=== PATIENT | female | born 1945 | race Hispanic/Latino ===

== ENCOUNTER 2018-11-04 08:39 | Emergency (ER) | payer MEDICARE, OTHER ==
[2018-11-04 08:39] VITALS: BMI 47.5
[2018-11-04 09:00] VITALS: RESP 18
--- NOTE | 2018-11-04 09:07 | ED PDOC ---
Arrival/HPI - General Chief Complaint: GI Problem Time Seen by Provider: 11/04/18 09:00 Historian: Patient - History of Present Illness Narrative History of Present Illness (Text): 11/04/18 09:04 73 year old female, whose past medical history includes hypercholestremia, hypertension, and diabetes, who presents to the Emergency department complaining of abdominal pain and vomiting x 1 day. Patient states she did an enema with no relief. Patient denies any fevers, chills, chest pain, shortness of breath, diarrhea, back pain, neck pain, urinary symptoms, headache, dizziness, or any other complaint. Time/Duration: 24 hours Symptom Onset: Gradual Symptom Course: Unchanged Activities at Onset: Light Context: Home Past Medical History - Provider Review Nursing Documentation Reviewed: Yes - Tetanus Immunization Tetanus Immunization: Unknown - Reproductive Menopause: Yes - Cardiac Hx Pacemaker: No - Neurological Hx Paralysis: No - Endocrine/Metabolic Hx Diabetes Mellitus Type 2: Yes - Hematological/Oncological Hx Blood Transfusions: No Hx Blood Transfusion Reaction: No - Musculoskeletal/Rheumatological Hx Musculoskeletal Disorders: Yes - Psychiatric Hx Emotional Abuse: No Hx Physical Abuse: No Hx Substance Use: No - Surgical History Hx Hysterectomy: Yes Hx Orthopedic Surgery: Yes (bilat knees) - Anesthesia Hx Anesthesia Reactions: No Hx Malignant Hyperthermia: No - Suicidal Assessment Feels Threatened In Home Enviroment: No Family/Social History - Physician Review Nursing Documentation Reviewed: Yes Family/Social History: Unknown Family HX Smoking Status: Never Smoked Hx Alcohol Use: Yes (OCCASIONAL GLASS OF WINE) Hx Substance Use: No Hx Substance Use Treatment: No Allergies/Home Meds Allergies/Adverse Reactions: Allergies No Known Allergies Allergy (Verified 11/04/18 09:00) Home Medications: Home Meds Medication Instructions Recorded Confirmed RX: metFORMIN [glucOPHAGE] 500 mg PO BID 05/30/16 11/04/18 Omeprazole 40 mg PO DAILY 11/04/18 11/04/18 Review of Systems - Physician Review All systems were reviewed & negative as marked: Yes - Review of Systems Constitutional: Normal Eyes: Normal ENT: Normal Respiratory: Normal. absent: SOB, Cough Cardiovascular: Normal. absent: Chest Pain Gastrointestinal: Abdominal Pain, Vomiting. absent: Diarrhea Genitourinary Female: Normal. absent: Dysuria, Frequency Musculoskeletal: Normal. absent: Back Pain, Neck Pain Skin: Normal. absent: Rash Neurological: Normal. absent: Headache Endocrine: Normal Hemo/Lymphatic: Normal Psychiatric: Normal Physical Exam Vital Signs Temp Pulse Resp BP Pulse Ox 11/04/18 08:52 98.3 F 75 18 130/79 96 - Systems Exam Head: Present: Atraumatic, Normocephalic Pupils: Present: PERRL Extroacular Muscles: Present: EOMI Conjunctiva: Present: Normal Mouth: Present: Moist Mucous Membranes Neck: Present: Normal Range of Motion Respiratory/Chest: Present: Clear to Auscultation, Good Air Exchange. No: Respiratory Distress, Accessory Muscle Use Cardiovascular: Present: Regular Rate and Rhythm, Normal S1, S2. No: Murmurs Abdomen: Present: Hernias (umbilical hernia). No: Tenderness, Distention, Peritoneal Signs Back: Present: Normal Inspection Upper Extremity: Present: Normal Inspection. No: Cyanosis, Edema Lower Extremity: Present: Normal Inspection. No: Edema Neurological: Present: GCS=15, CN II-XII Intact, Speech Normal Skin: Present: Warm, Dry, Normal Color. No: Rashes Psychiatric: Present: Alert, Oriented x 3, Normal Insight, Normal Concentration Medical Decision Making ED Course and Treatment: 11/04/18 09:07 Impression: 73 year old female presents to the emergency department complaining of abdominal pain and vomiting. ro obstruciton gastritis pancreatiis colitis. Plan: -- EKG -- Cardiac ISO -- Labs -- CXR -- Zofran -- Sodium Chloride -- UA -- Reassess and disposition Progress Notes: 11/04/18 09:10 EKF reviewed, shows NSR at 78bpm. RBBB 11/04/18 09:53 CXR reviewed, shows: IMPRESSION: No active disease. 11/04/18 11:37 CT Abdomen/Pelvis reviewed, shows: IMPRESSION: No acute abdominal pelvic pathology. Hepatic cirrhosis with trace perihepatic ascites. Heterogeneous low-attenuation this area in the peripheral right hepatic lobe as above described. This is nonspecific. Multiphasic contrast-enhanced CT/MRI of the liver can be obtained on a non emergent basis for further characterization as clinically warranted. Inferior ventral pelvic wall hernia containing fat and a loop of nonobstructive robert Additional stable findings as above. L 11/04/18 12:36 case seen by surgical team. no e/o of obstruciton. hernia reducible. symptoms impoved. cleared by surgery. stable for d.c 12/30/18 12:37 - RAD Interpretation Radiology Orders: 11/04/18 09:03 CHEST PORTABLE [RAD] Stat - Scribe Statement The provider has reviewed the documentation as recorded by the Scribe Prudence Marcos All medical record entries made by the Scribe were at my direction and personally dictated by me. I have reviewed the chart and agree that the record accurately reflects my personal performance of the history, physical exam, medical decision making, and the department course for this patient. I have also personally directed, reviewed, and agree with the discharge instructions and disposition. ' Disposition/Present on Arrival - Present on Arrival Any Indicators Present on Arrival: No History of DVT/PE: No History of Uncontrolled Diabetes: No Urinary Catheter: No History of Decub. Ulcer: No History Surgical Site Infection Following: None - Disposition Have Diagnosis and Disposition been Completed?: Yes Diagnosis: Abdominal pain Disposition: HOME/ ROUTINE Disposition Time: 11:00 Condition: STABLE Discharge Instructions (ExitCare): Acute Abdomen (Belly Pain), Adult (DC) Additional Instructions: return to er with worsening Prescriptions: Pantoprazole Sodium [Protonix] 40 mg PO DAILY #20 ect Referrals: Malick Augustin MD [Medical Doctor] - Follow up with primary Pop Calzada MD [Staff Provider] - Follow up with primary Forms: [employer] (Danish)
[2018-11-04] MEDS ORDERED: Sodium Chloride 0.9% 1,000 ML IV SCH (09:15)
[2018-11-04 09:42] LABS: GRAN # 5.82 (1.4-6.5); GRAN % 83.6 % (50.0-68.0); HEMOGLOBIN 14.8 g/dL (12.0-16.0); LYMPH # 0.8 (1.2-3.4); LYMPH % 10.9 % (22.0-35.0); MEAN CELL VOLUME 87.8 fl (80.0-105.0); MEAN CORPUSCULAR HEMOGLOBIN 28.7 pg (25.0-35.0); MEAN CORPUSCULAR HGB CONC 32.7 g/dl (31.0-37.0); MEAN PLATELET VOLUME 11.8 fl (7.0-11.0); MONO # 0.4 (0.1-0.6); MONO % 5.5 % (1.0-6.0); RBC 5.16 10^6/uL (3.5-6.1); RED CELL DISTRIBUTION WIDTH 15.3 % (11.5-14.5)
--- NOTE | 2018-11-04 09:43 | RAD ---
Date of service: 11/04/2018 HISTORY: abd pain COMPARISON: Chest radiograph dated 06/06/2012 FINDINGS: LUNGS: No active pulmonary disease. PLEURA: No significant pleural effusion identified, no pneumothorax apparent. CARDIOVASCULAR: Aortic atherosclerotic calcifications. Cardiomediastinal silhouette stably enlarged. OSSEOUS STRUCTURES: Unchanged. VISUALIZED UPPER ABDOMEN: Normal. OTHER FINDINGS: None. IMPRESSION: No active disease.
[2018-11-04 09:49] LABS: INR 1.07; PARTIAL THROMBOPLASTIN TIME 26.1 Seconds (25.1-36.5); PROTHROMBIN TIME 12.3 SECONDS (9.4-12.5)
[2018-11-04 09:56] LABS: ALB/GLOB RATIO 1.5 (1.1-1.8); ALBUMIN 4.5 g/dL (3.0-4.8); ALT/SGPT 40 U/L (7-56); AMYLASE 93 U/L (35-125); AST/SGOT 33 U/L (14-36); BLOOD UREA NITROGEN 17 mg/dL (7-21); CALCIUM 9.8 mg/dL (8.4-10.5); GFR NON-AFRICAN AMERICAN > 60; LIPASE 108 U/L (23-300)
[2018-11-04 10:01] LABS: TROPONIN I < 0.01 ng/mL
[2018-11-04] MEDS ORDERED: Iohexol 350 MG/100 ML VIAL ONE (10:05)
[2018-11-04 10:56] LABS: URINE BILIRUBIN NEGATIVE (NEGATIVE); URINE BLOOD NEGATIVE (NEGATIVE); URINE GLUCOSE (UA) 500 mg/dL (NEGATIVE); URINE LEUKOCYTE ESTERASE NEGATIVE Leu/uL (NEGATIVE); URINE PROTEIN 30 mg/dL (<30 mg/dL); URINE UROBILINOGEN 0.2 E.U./dL (<1 E.U./dL)
[2018-11-04 10:57] LABS: URINE APPEARANCE SL CLOUDY (CLEAR); URINE COLOR YELLOW (YELLOW)
[2018-11-04 11:06] LABS: URINE BACTERIA FEW /hpf; URINE RBC 0 - 2 /hpf (0-2)
--- NOTE | 2018-11-04 11:12 | CT ---
Date of service: 11/04/2018 PROCEDURE: CT Abdomen and Pelvis with contrast HISTORY: abd pain, vomiting COMPARISON: CT scan of the abdomen pelvis dated 04/18/2016. TECHNIQUE: Contrast dose: 100 mL Omnipaque 350 Radiation dose: Total exam DLP = 880.79 mGy-cm. This CT exam was performed using one or more of the following dose reduction techniques: Automated exposure control, adjustment of the mA and/or kV according to patient size, and/or use of iterative reconstruction technique. FINDINGS: LOWER THORAX: Cardiomegaly. LIVER: Nodular contour. Heterogeneous low attenuation area in the peripheral right hepatic lobe measuring 1.5 x 2.4 cm (series 3, image 40). No ductal dilatation. GALLBLADDER AND BILE DUCTS: Unremarkable. PANCREAS: Unremarkable. No gross lesion or ductal dilatation. SPLEEN: Scattered punctate splenic calcifications in hypodensities. ADRENALS: Unremarkable. No mass. KIDNEYS AND URETERS: Multiple tiny left renal cysts. No hydronephrosis. No solid mass. VASCULATURE: Unremarkable. No aortic aneurysm. No aortic atherosclerotic calcification or mural plaque present. BOWEL: Unremarkable. No obstruction. No gross mural thickening. APPENDIX: No findings to suggest acute appendicitis. PERITONEUM: Trace perihepatic ascites. Small inferior abdominal wall hernia containing nonobstructed bowel no free air. LYMPH NODES: Unremarkable. No enlarged lymph nodes. BLADDER: Unremarkable. REPRODUCTIVE: Prior hysterectomy. BONES: No acute fracture. OTHER FINDINGS: None. IMPRESSION: No acute abdominal pelvic pathology. Hepatic cirrhosis with trace perihepatic ascites. Heterogeneous low-attenuation this area in the peripheral right hepatic lobe as above described. This is nonspecific. Multiphasic contrast-enhanced CT/MRI of the liver can be obtained on a non emergent basis for further characterization as clinically warranted. Inferior ventral pelvic wall hernia containing fat and a loop of nonobstructive robert Additional stable findings as above. L
--- NOTE | 2018-11-04 11:34 | CP.PCM.CON ---
History of Present Illness - History of Present Illness History of Present Illness: General Surgery consult note for Dr. Calzada Consulted for: Abdominal pain, ventral hernia Pt is a 73F with PMH including DM and PSH including hysterectomy who presented to the ED with one day of abdominal pain, nausea, and vomiting. Patient states the pain was epigastric/ivis-umbilical and started around 11AM. Patient states she takes miralax every day and has a large BM every morning, but yesterday she only had a small BM. BM was regular in consistency and color, denies any blood. Patient states that later that afternoon the pain did not get better and she began having nausea and vomiting non-bilious, non-bloody emesis. She took another stool softener which she vomited. Abdominal pain and vomiting got worse overnight so she came to ER. patient states that she had a similar episode one year ago and it resolved with rest. Patient denies pain associated with eating greasy food. Denies fevers, chills, dysuria, back pain, chest pain, or any other symptoms. Reports intentional weight loss of 100pounds over past year with pr escribed ozempic. Has had known reducible, asymptomatic ventral hernia for several years. PMH: DM2, HTN (resolved with weight loss), gastritis PSH: BL knee surgery, hysterectomy, polypectomy via colonoscopy 2015 with tubular adenomas ALL: NKDA Denies any smoking, drinking, or drug history Review of Systems - Review of Systems All systems: reviewed and no additional remarkable complaints except (as per HPI) Past Patient History - Tetanus Immunizations Tetanus Immunization: Unknown - Past Medical History & Family History Past Medical History?: Yes Past Family History: Reviewed and not pertinent - Past Social History Smoking Status: Never Smoked Alcohol: None Drugs: Denies - CARDIAC Hx Pacemaker: No - NEUROLOGICAL Hx Paralysis: No - ENDOCRINE/METABOLIC Hx Diabetes Mellitus Type 2: Yes - HEMATOLOGICAL/ONCOLOGICAL Hx Blood Transfusions: No Hx Blood Transfusion Reaction: No - MUSCULOSKELETAL/RHEUMATOLOGICAL Hx Musculoskeletal Disorders: Yes - PSYCHIATRIC Hx Emotional Abuse: No Hx Physical Abuse: No Hx Substance Use: No - SURGICAL HISTORY Hx Hysterectomy: Yes Hx Orthopedic Surgery: Yes (bilat knees) - ANESTHESIA Hx Anesthesia Reactions: No Hx Malignant Hyperthermia: No Meds Home Medications: Home Medication List Medication Instructions Recorded Confirmed Type Pantoprazole Sodium [Protonix] 40 mg PO DAILY #20 ect 11/04/18 Rx Allergies/Adverse Reactions: Allergies Allergy/AdvReac Type Severity Reaction Status Date / Time No Known Allergies Allergy Verified 11/04/18 09:00 - Medications Medications: Current Medications Sodium Chloride (Sodium Chloride 0.9%) 1,000 mls @ 100 mls/hr IV .Q10H STIVEN Last Admin: 11/04/18 09:25 Dose: 100 mls/hr Physical Exam - Constitutional Appears: Well, Non-toxic, No Acute Distress - Head Exam Head Exam: ATRAUMATIC, NORMOCEPHALIC - Eye Exam Eye Exam: Normal appearance. absent: Conjunctival injection, Scleral icterus - ENT Exam ENT Exam: Mucous Membranes Moist, Normal Oropharynx - Respiratory Exam Respiratory Exam: NORMAL BREATHING PATTERN. absent: Accessory Muscle Use, Respiratory Distress - Cardiovascular Exam Cardiovascular Exam: RRR - GI/Abdominal Exam GI & Abdominal Exam: Hernia (large ventral hernia containing bowel, no overlying skin changes, non-tender, easily reducible), Soft. absent: Distended (central obesity body habitus), Rebound, Tenderness Additional comments: small area of superficial skin breakdown with prior bleeding evident along skin fold of hernia - Rectal Exam Rectal Exam: Hemorrhoids (external and internal). absent: Black Stool, Fecal Impaction Additional comments: normal sphincter tone, bright red blood spread on ivis-anal skin, no signs of active bleed, small streaks of bright red blood in stool, no palpable masses - Extremities Exam Extremities exam: Positive for: pedal pulses present. Negative for: calf ten derness, pedal edema - Neurological Exam Neurological exam: Alert, Oriented x3 - Psychiatric Exam Psychiatric exam: Normal Affect, Normal Mood - Skin Skin Exam: Dry, Normal Color, Warm Results - Vital Signs Recent Vital Signs: Last Vital Signs Temp 98.3 F 11/04/18 08:52 Pulse 75 11/04/18 08:52 Resp 18 11/04/18 08:52 BP 130/79 11/04/18 08:52 Pulse Ox 96 11/04/18 08:52 - Labs Result Diagrams: 11/04/18 09:25 11/04/18 09:25 Labs: Laboratory Results - last 24 hr 11/04/18 11/04/18 11/04/18 09:25 09:25 09:25 WBC 7.0 RBC 5.16 Hgb 14.8 Hct 45.3 MCV 87.8 MCH 28.7 MCHC 32.7 RDW 15.3 H Plt Count 166 MPV 11.8 H Gran % 83.6 H Lymph % (Auto) 10.9 L [place] % (Auto) 5.5 Eos % (Auto) 0.0 L Baso % (Auto) 0.0 Gran # 5.82 Lymph # (Auto) 0.8 L [place] # (Auto) 0.4 Eos # (Auto) 0.0 Baso # (Auto) 0.00 PT 12.3 INR 1.07 APTT 26.1 Sodium 138 Potassium 4.0 Chloride 101 Carbon Dioxide 28 Anion Gap 13 BUN 17 Creatinine 0.7 Est GFR ( Amer) > 60 Est GFR (Non-Af Amer) > 60 Random Glucose 168 H Calcium 9.8 Total Bilirubin 1.1 AST 33 ALT 40 Alkaline Phosphatase 55 Lactate Dehydrogenase 486 Total Creatine Kinase 40 Troponin I < 0.01 Total Protein 7.6 Albumin 4.5 Globulin 3.1 Albumin/Globulin Ratio 1.5 Amylase 93 Lipase 108 Urine Color Urine Appearance Urine pH Ur Specific [place] Urine Protein Urine Glucose (UA) Urine Ketones Urine Blood Urine Nitrate Urine Bilirubin Urine Urobilinogen Ur Leukocyte Esterase Urine RBC Urine WBC Ur Epithelial Cells Urine Bacteria 11/04/18 10:46 WBC RBC Hgb Hct MCV MCH MCHC RDW Plt Count MPV Gran % Lymph % (Auto) [place] % (Auto) Eos % (Auto) Baso % (Auto) Gran # Lymph # (Auto) [place] # (Auto) Eos # (Auto) Baso # (Auto) PT INR APTT Sodium Potassium Chloride Carbon Dioxide Anion Gap BUN Creatinine Est GFR ( Amer) Est GFR (Non-Af Amer) Random Glucose Calcium Total Bilirubin AST ALT Alkaline Phosphatase Lactate Dehydrogenase Total Creatine Kinase Troponin I Total Protein Albumin Globulin Albumin/Globulin Ratio Amylase Lipase Urine Color Yellow Urine Appearance Sl cloudy Urine pH 6.0 Ur Specific [place] >= 1.030 Urine Protein 30 H Urine Glucose (UA) 500 H Urine Ketones >=80 Urine Blood Negative Urine Nitrate Negative Urine Bilirubin Negative Urine Urobilinogen 0.2 Ur Leukocyte Esterase Negative Urine RBC 0 - 2 Urine WBC 2 - 5 Ur Epithelial Cells 10 - 12 H Urine Bacteria Few - Imaging and Cardiology CT scan - abdomen Status: Image reviewed by me, Report reviewed by me Assessment & Plan - Assessment and Plan (Free Text) Assessment: 73F with chronic constipation and ventral hernia with abdominal pain, nausea, and vomiting, relieved by BM in the ER Plan: No surgical intervention indicated at this time--patient's hernia is easily reduced, and CT scan shows no signs of obstruction or urgent surgical pathology in the abdomen Patient may follow up as an outpatient with Dr. Calzada for any further problems or to plan outpatient hernia repair Patient instructed to return to ER for any return of symptoms, fevers, chills, bloody bowel movements, or any other concerning symptoms Continue home stool softeners Encouraged continued weight loss prior to hernia repair Discussed with Dr. Calzada, who agrees with above Charlette Walton, PGY2
[2018-11-04 11:39] VITALS: BP 116/76; PULSE 87; TEMP 98.1; O2SAT 98
--- NOTE | 2018-11-04 20:24 | CARD ---
APPROVED REPORT Date of service: 11/04/2018 EKG Measurement Heart [id number] MD [id number] <Conclusion> Normal sinus rhythm Possible Left atrial enlargement Right bundle branch block Left anterior fascicular block Bifascicular block Poor R wave progression in Precordial leads Abnormal ECG
== END 2018-11-04 12:00 | disposition home or self-care (01) ==
LOC: ED 08:39
DX: R10.9 Unspecified abdominal pain (principal); E11.9 Type 2 diabetes mellitus without complications; I10 Essential (primary) hypertension; E78.00 Pure hypercholesterolemia, unspecified
CPT/HCPCS: 71045; 74177; 80053; 81001; 82150; 82550; 83615; 83690; 84484; 85025; 85610; 85730; 93005; 96374; 99284; J2405; J7030; Q9967

== ENCOUNTER 2019-02-19 07:40 | Outpatient (CLI) | payer MEDICARE, OTHER | END 2019-02-19 07:41 | disposition home or self-care (01) | LOC: PAT 07:40 ==

== ENCOUNTER 2019-03-04 06:00 | Day surgery (SDC) | payer MEDICARE, OTHER ==
[2019-03-04] MEDS ORDERED: Bupivacaine 0.5% 50 ML IJ ONE (07:23)
[2019-03-04] MEDS ORDERED: Propofol 10 mg/ml Inj (20 ML) ONE (07:30)
[2019-03-04] MEDS ORDERED: Rocuronium 10 mg/ml (5 ml) ONE (07:31)
[2019-03-04] MEDS ORDERED: Succinylcholine 200 mg/10 ml Inj IV ONE (07:31)
[2019-03-04] MEDS ORDERED: Desflurane Inhalation Anesthetic Liq (240 ml) ONE (09:37)
[2019-03-04] MEDS ORDERED: Neostigmine Methylsulfate 3mg/3ml Syringe IV ONE (10:21)
[2019-03-04] MEDS ORDERED: Oxycodone/Acetaminophen 5/325 mg Tab PO PRN ×2 (11:16)
--- NOTE | 2019-03-04 11:16 | PCM.SURG1 ---
Surgeon's Initial Post Op Note - Surgeon's Notes Surgeon: Dr. Copeland Central Office Inspector: Dr. Trevino PGY-4, Dr. Page PGY-1 Type of Anesthesia: General Endo, Local Pre-Operative Diagnosis: Incarcerated ventral hernia Operative Findings: Incarcerated ventral hernia with omentum and small bowel adhesed to abdominal wall Post-Operative Diagnosis: Incarcerated ventral hernia Operation Performed: Laparoscopic ventral hernia repair with mesh Specimen/Specimens Removed: omentum Estimated Blood Loss: EBL {In ML}: 10 Blood Products Given: N/A Drains Used: No Drains Post-Op Condition: Good Date of Surgery/Procedure: 03/04/19 Time of Surgery/Procedure: 08:30
[2019-03-04] MEDS ORDERED: HYDROmorphone 0.5 mg/0.5 ml ISec IVP PRN (11:17)
[2019-03-04] MEDS ORDERED: Lactated Ringer's 1,000 ML IV SCH (11:30)
[2019-03-04 12:20] VITALS: BMI 47.5
[2019-03-04 12:21] VITALS: BP 123/68; PULSE 77; RESP 18; TEMP 98.3; O2SAT 94
--- NOTE | 2019-03-06 08:32 | OP ---
PROCEDURE DATE: 03/04/2019 SURGEON: Paul Copeland MD ASSISTANTS: Amy Trevino DO and Kade Page DO ANESTHESIA: General with local. PREOPERATIVE DIAGNOSIS: Incarcerated ventral hernia. POSTOPERATIVE DIAGNOSIS: Incarcerated ventral hernia. OPERATION PERFORMED: Laparoscopic ventral hernia repair with mesh. ESTIMATED BLOOD LOSS: 10 mL. DRAINS: There were no drains. COMPLICATIONS: There were no complications. INDICATIONS FOR THE PROCEDURE: The patient is a 74-year-old female who was evaluated for ventral hernia and requested elective repair. DESCRIPTION OF PROCEDURE: The patient was brought into the operating room and placed on the table in a supine position. General anesthesia was induced. A time-out was completed verifying the correct patient, procedure, site, positioning, implants, any special equipment prior to the beginning of the procedure. The abdomen was prepped and draped in the usual sterile fashion. Prior to incision, Marcaine was infiltrated into the proposed incision site. The fascia was elevated and the Veress needle was inserted. Proper position was confirmed by aspiration and saline meniscus test. The abdomen was insufflated with carbon dioxide to a pressure of 15 mmHg. The patient tolerated the insufflation well. A 12-mm trocar was inserted into the left upper quadrant. The laparoscope was inserted and the abdomen was inspected. A 2 x 2 cm defect was seen in the midline. Under direct visualization, additional 5 mm trocars were placed in the left lower quadrant and the left mid abdomen. Care was taken to avoid injury to the bladder or inferior epigastric vessels. The omentum was adhered in the hernia. It was taken down carefully using electrocautery. The defect was then sutured close with a V-Loc suture. A Symbotex composite mesh which measured 9 cm was chosen for the repair. A suture was sutured into the center of the mesh. The mesh was then brought in and then tied configuration and was introduced through the right upper quadrant 12-mm port. The mesh was placed within the peritoneal cavity without any complication. Using a GraNee needle to grasp the suture on the mesh, it was pulled up with the abdominal wall. The proper orientation of the mesh was maintained throughout the entire procedure with a nonadherent hydrocellulose-coated side of the mesh facing the bowel. The mesh was tacked with a tacker device. The tacker was placed in a circumferential fashion approximately 5.5 cm from the edge and approximately 1 cm from each other. was done with the second row and tacked circumferentially. The abdominal cavity was inspected and the hernia repair appeared satisfactory. The trocars were removed under direct vision. The abdomen was allowed to collapse. The fascia was closed with Vicryl UR-6 suture. The skin was closed with 4-0 Monocryl. Additional Marcaine was infiltrated. The incisions were covered with Dermabond. The patient tolerated the procedure well and was brought to PACU in stable condition. Amy Trevino DO Paul Copeland MD
== END 2019-03-04 15:30 | disposition home or self-care (01) ==
LOC: SDS 06:00
PROVIDERS: ATTEND General Practice
DX: K43.6 Other and unspecified ventral hernia with obstruction, without gangrene (principal); E11.9 Type 2 diabetes mellitus without complications; I10 Essential (primary) hypertension
CPT/HCPCS: 49653; 82948; 88302; C1781; J0131; J0330; J0690; J1100; J1170; J2001; J2405; J2704; J2710; J3010; J7120 ×2